=== PATIENT | female | born 1975 | race Caucasian/White ===

== ENCOUNTER → 2017-04-07 | Outpatient (CLI) | payer OTHER | LOC: FIMAGING 12:39 | PROVIDERS: ATTEND Family Medicine | DX: Z12.31 Encounter for screening mammogram for malignant neoplasm of breast (principal) | CPT/HCPCS: G0202 ==

== ENCOUNTER 2017-06-07 14:58 | Emergency (ER) | payer OTHER ==
--- NOTE | 2017-06-07 15:19 | EDPHY ---
H & P Stated Complaint: diarrhea/l sided abd pain Time Seen by Provider: 06/07/17 15:07 HPI/ROS: CHIEF COMPLAINT: Abdominal pain HISTORY OF PRESENT ILLNESS: This patient is a 42 year old female complaining of abdominal pain. Tuesday afternoon, two days ago, she had a 2 hour episode of diarrhea. The following morning around 1am, she began vomiting after drinking water, again lasting around 2 hours. Since then, she has had left sided abd pain with any oral intake. She vomited once last night around 3am, but has been able to keep down some fluids. She had not had further episodes of diarrhea. She had Norovirus at the end of October, but her current symptoms feel different and she has never had similar pain. She has never had a colonoscopy, and denies known history of diverticulosis. No dysuria. No history of abdominal surgery. No current nausea. REVIEW OF SYSTEMS: A 10 point review of systems was performed and is negative with the exception of the elements mentioned in the history of present illness. - Personal History LMP (Females 10-55): IUD In Place Current Tetanus/Diphtheria Vaccine: Unsure Tetanus Vaccine Date: 02/2007 - Medical/Surgical History PMH: 1. Asthma 2. Depression Hx Asthma: Yes Hx Chronic Respiratory Disease: No Hx Diabetes: No Hx Cardiac Disease: No Hx Renal Disease: No Hx Cirrhosis: No Hx Alcoholism: No Hx HIV/AIDS: No Hx Splenectomy or Spleen Trauma: No Other PMH: depression - Social History Smoking Status: Never smoked Additional Social History: Nonsmoker. No alcohol use. Primary care provider Dr. Wall. - Physical Exam Exam: General Appearance: Alert, no distress Eyes: Pupils equal and round, no conjunctival pallor or injection ENT, Mouth: Mucous membranes moist Neck: Normal inspection Respiratory: Lungs are clear to auscultation Cardiovascular: Regular rate and rhythm Gastrointestinal: LLQ tenderness. Abdomen is soft. Neurological: A&O, nonfocal, normal gait Skin: Warm and dry, no rash Extremities: Nontender, no pedal edema Psychiatric: Mood and affect normal Constitutional: Initial Vital Signs Temperature (C) 37.2 C 06/07/17 15:02 Heart Rate 63 06/07/17 15:02 Respiratory Rate 16 06/07/17 15:02 Blood Pressure 162/99 H 06/07/17 15:02 O2 Sat (%) 97 06/07/17 15:02 O2 Delivery Mode Room Air Allergies/Adverse Reactions: amoxicillin [Amoxicillin] Allergy (Verified 06/07/17 15:01) Home Medications: Medication Instructions Recorded Albuterol Sulfate 08/25/09 DULoxetine 06/07/17 Medical Decision Making - Diagnostics Imaging Results: Abdomen CT 06/07/17 15:19 Impression: 1. No acute findings in the abdomen or pelvis. 2. Cholelithiasis, without evidence of cholecystitis. 3. Degenerative change at L5-S1. 4. Additional findings, as above. Findings discussed with Hazel Andrew M.D., on June 07, 2017 at 1638. ED Course/Re-evaluation: 42 y/o female presets with left-sided abdominal abdominal pain associated with any oral intake. Exam reveals LLQ tenderness. IV established. Plan for CT abdomen w/contrast. Plan for labs including UA, CBC, and BMP. 16:[address] Virgen, radiologist. CT negative for diverticulitis. CT shows cholelithiasis, no evidence of cholecystitis. Reassessed patient. Abdominal exam remains unchanged and benign. Unclear etiology of pain. CT scan results discussed with the patient. Gallstones noted. However the patient is not tender in the right upper quadrant or epigastrium and I do not think that the gallstones are causing the left lower quadrant pain today. She will f/u with a surgeon. Toradol 15 mg IV ordered. Plan to discharge home in good condition. Follow up and return precautions discussed. The patient is comfortable with this plan. Differential Diagnosis: Differential diagnosis includes though it is not limited to appendicitis, cholecystitis, diverticulitis, pyelonephritis, bowel perforation, small bowel obstruction. - Data Points Laboratory Results: Laboratory Results 06/07/17 15:30 06/07/17 15:30 Microbiology Results: MICROBIOLOGY 06/07/17 16:30 Urine,Clean Catch Urine Culture - Final Four [place] Types Medications Given: Discontinued Medications Ketorolac Tromethamine (Toradol) 15 mg IVP EDNOW ONE Stop: 06/07/17 16:59 Last Admin: 06/07/17 17:05 Dose: Not Given Departure - Departure Disposition: Home, Routine, Self-Care Clinical Impression: Gallstones Abdominal pain Qualifiers: Abdominal location: left lower quadrant Qualified Code(s): R10.32 - Left lower quadrant pain Condition: Good Instructions: Acute Abdominal Pain (ED), Abdominal Pain (ED) Additional Instructions: Sometimes we are unable to diagnose an obvious cause of abdominal pain in the Emergency Department. Based upon our evaluation today, we see no obvious explanation for your pain. Because more serious conditions can be difficult to diagnose early in the course of their presentation, we ask that you return to the Emergency Department in 8-12 hours for a recheck if you are still having pain. This is necessary to exclude the development of a more serious condition such as appendicitis or other intra-abdominal emergency. In the event your pain markedly increases before that time or you develop intractable vomiting or fever return to the Emergency Department immediately. Referrals: Sabi Wall MD [Primary Care Provider] - As per Instructions Report Scribed for: Hazel Andrew Report Scribed by: Tamra Eldridge Date of Report: 06/07/17 Time of Report: 15:19 Physician Review and Approval Statement: 06/07/17 15:19 Portions of this note were transcribed by a spanish medical interpreter. I personally performed a history, physical exam, medical decision making, and confirmed accuracy of information the transcribed note.
[2017-06-07 15:38] LABS: % IMMATURE GRANULYOCYTES 0.3 % (0.0-1.1); ABSOLUTE IMMATURE GRANULOCYTES 0.03 10^3/uL (0.00-0.10); ADD DIFF? NO; ADD MORPH? NO; ADD SCAN? NO; ATYPICAL LYMPHOCYTE FLAG 0 (0-99); FRAGMENT RBC FLAG 0 (0-99); HEMATOCRIT 47.7 % (38.0-47.0); HEMOGLOBIN 16.2 g/dL (12.6-16.3); LEFT SHIFT FLG 0 (0-99); LIPEMIA HEMOLYSIS FLAG 90 (0-99); MEAN CELL HEMOGLOBIN 28.7 pg (27.9-34.1); MEAN CELL VOLUME 84.6 fL (81.5-99.8); MEAN PLATELET VOLUME 10.3 fL (8.7-11.7); PLATELET CLUMPS FLAG 0 (0-99); PLATELET COUNT 244 10^3/uL (150-400); RED BLOOD CELL COUNT 5.64 10^6/uL (4.18-5.33); RED CELL DISTRIBUTION WIDTH 12.9 % (11.5-15.2)
[2017-06-07 15:47] LABS: CALCIUM 9.5 mg/dL (8.5-10.4); CARBON DIOXIDE 24 mEq/l (22-31); CHLORIDE 101 mEq/L (97-110); CREATININE 0.8 mg/dL (0.6-1.0); GLOMERULAR FILTRATION RATE > 60; GLUCOSE 97 mg/dL (70-100); SODIUM 139 mEq/L (134-144)
[2017-06-07 15:54] LABS: ANION GAP 14 mEq/L (8-16); POTASSIUM 3.6 mEq/L (3.5-5.2)
[2017-06-07] MEDS ORDERED: IOPAMIDOL (ISOVUE-300) 100 ML BTL ONE (16:00)
[2017-06-07 16:47] LABS: COLOR YELLOW; LEUKOCYTE ESTERASE,URINE 1+ (NEGATIVE); NITRITE,URINE NEGATIVE (NEGATIVE)
[2017-06-07 16:55] LABS: MUCUS TRACE /lpf (NONE-1+)
[2017-06-07] MEDS ORDERED: KETOROLAC 15 MG/1 ML SDV IVP ONE (16:58)
[2017-06-07 17:15] LABS: ALBUMIN 4.7 g/dL (3.5-5.0); BILIRUBIN,TOTAL 0.8 mg/dL (0.1-1.4); BILIRUBIN-CONJUGATED 0.3 mg/dL (0.0-0.5); BILIRUBIN-UNCONJUGATED 0.5 mg/dL (0.0-1.1); TOTAL PROTEIN 8.2 g/dL (6.3-8.2)
[2017-06-07 17:17] VITALS: BP 155/81; PULSE 72; RESP 18; TEMP 98.6; O2SAT 95
== END 2017-06-07 17:17 | disposition home or self-care (01) ==
DX: K80.20 Calculus of gallbladder without cholecystitis without obstruction (principal); J45.909 Unspecified asthma, uncomplicated
CPT/HCPCS: 82947-QW; Q9967

== ENCOUNTER → 2018-04-22 | Outpatient (CLI) | payer OTHER | LOC: FIMAGING 14:31 | PROVIDERS: ATTEND Family Medicine | DX: Z12.31 Encounter for screening mammogram for malignant neoplasm of breast (principal) ==

== ENCOUNTER → 2019-02-07 | Outpatient (CLI) | payer OTHER | LOC: FIMAGING 11:32 ==

== ENCOUNTER → 2019-02-20 | Outpatient (CLI) | payer OTHER | LOC: FIMAGING 07:09 ==